=== PATIENT | female | born 1935 | race Caucasian/White ===

== ENCOUNTER 2018-12-14 05:46 | Day surgery (SDC) | payer MEDICARE, OTHER ==
[~2018-12-14] VITALS: Ht 165.1 cm; Wt 48.4 kg
[~2018-12-14 05:46] MED LIST: ALBU8.5H8 INH; ASCO-96 PO; ASPI81TA45 PO; CELE200C PO; CHOL10003 PO; CYCL5TAB PO; DICL100G19 TP; FERR324T5 PO; FURO20TA3 PO; GABA300C10 PO; HYDR-3237 PO; LACT1CAP37 PO; MONT10TA6 PO; VITAMIN B12; ZOLP-413 PO
[2018-12-14 06:33] VITALS: BP 122/67
[2018-12-14] MEDS ORDERED: LACTATED RINGERS 1,000 ML IV SCH (06:39)
[2018-12-14] MEDS ORDERED: CHLORHEXIDINE 15 ML UDC ONE (06:42)
[2018-12-14] MEDS ORDERED: FENTANYL PF 100 MCG/2ML IV PRN ×2 (07:00→08:30)
[2018-12-14] MEDS ORDERED: ONDANSETRON ODT 8 MG PO PRN (07:00)
[2018-12-14] MEDS ORDERED: ONDANSETRON 2MG/ML, 2ML IV PRN (07:00)
[2018-12-14] MEDS ORDERED: ALBUTEROL SULFATE 2.5 MG/3 ML NPPB PRN ×2 (07:00→09:00)
[2018-12-14] MEDS ORDERED: PROPOFOL 10 MG/ML, 20ML ONE (07:11)
[2018-12-14] MEDS ORDERED: PROPOFOL 50 ML ONE (07:24)
[2018-12-14] MEDS ORDERED: PHENYLEPHRINE 10 MG/ML ONE (07:34)
[2018-12-14] MEDS ORDERED: HYDROcodone/APAP 7.5-325MG/15ML UDC PO PRN (08:30)
[2018-12-14] MEDS ORDERED: HYDROcodone/APAP 7.5-325MG/15ML UDC ONE (08:32)
[2018-12-14] MEDS ORDERED: ALBUTEROL SULFATE 2.5 MG/3 ML ONE (08:45)
== END 2018-12-14 09:51 | disposition home or self-care (01) ==
LOC: OUT 05:46
PROVIDERS: ATTEND Internal Medicine Gastroenterology
DX: C25.0 Malignant neoplasm of head of pancreas (principal); K83.1 Obstruction of bile duct; K29.00 Acute gastritis without bleeding; K29.50 Unspecified chronic gastritis without bleeding; K86.81 Exocrine pancreatic insufficiency; J44.9 Chronic obstructive pulmonary disease, unspecified; Z85.118 Personal history of other malignant neoplasm of bronchus and lung; Z85.3 Personal history of malignant neoplasm of breast; Z86.73 Personal history of transient ischemic attack (TIA), and cerebral infarction without residual deficits; Z90.710 Acquired absence of both cervix and uterus; Z79.82 Long term (current) use of aspirin
CPT/HCPCS: 43242; 71045; 88172; 88173; 88177; 88305; 88307; 94640; J2370; J2704; J7613